=== PATIENT | male | born 1960 | race African-American/Black ===

== ENCOUNTER 2017-07-27 16:34 | Inpatient (IN) | payer MEDICAID ==
[~2017-07-27] VITALS: Ht 167.6 cm; Wt 86.0 kg
--- NOTE | 2017-07-27 19:00 | NUR ---
PT OFF OF UNIT TO RADIOLOGY.
[2017-07-27 20:15] LABS: BASOPHIL % 0.4 % (0-2); PLATELET COUNT 287 x10^3mcL (130-400); RED CELL DISTRIBUTION WIDTH 13.7 % (11.5-14.5)
[2017-07-27 20:22] LABS: CALCIUM 8.8 mg/dL (8.5-10.1); CARBON DIOXIDE 27.1 mmol/L (21-32); CHLORIDE SERUM 98 mmol/L (98-107); GFR1 > 60 mL/min; GLUCOSE SERUM 265 mg/dL (74-106); POTASSIUM SERUM 3.7 mmol/L (3.5-5.1); SODIUM SERUM 134 mmol/L (136-145)
[2017-07-27 20:27] LABS: ALKALINE PHOSPHATASE 96 U/L (46-116); ALT/SGPT 18 U/L (16-63); AST/SGOT 19 U/L (15-37); BILIRUBIN TOTAL 0.48 mg/dL (0.20-1.00); CHOLESTEROL 167 mg/dL (<200); HDL CHOLESTEROL 43 mg/dL (40-60)
[2017-07-27 20:30] LABS: ALBUMIN 3.2 g/dL (3.4-5.0); TOTAL PROTEIN, SERUM 8.5 g/dL (6.4-8.2)
--- NOTE | 2017-07-27 20:30 | NUR ---
CHRISTA RODRIGUEZ AT BEDSIDE FOR MED PASS.
[2017-07-27] MEDS ORDERED: SEROQUEL400 M1 PO (21:22)
[2017-07-27] MEDS ORDERED: ABILIFY20 M1 PO (21:23)
[2017-07-27] MEDS ORDERED: LOTENSIN40 MG PO (21:23)
[2017-07-27] MEDS ORDERED: NOR10 PO (21:23)
[2017-07-27] MEDS ORDERED: HYDROCHLOROTHIA25 MG PO (21:24)
[2017-07-27] MEDS ORDERED: JANUVIA100 M1 PO (21:24)
[2017-07-27] MEDS ORDERED: CATAPRES0.1 MG PO ×2 (21:25→21:26)
[2017-07-27] MEDS ORDERED: GLUCOTROL10 MG PO (21:25)
[2017-07-27] MEDS ORDERED: METFORMIN HCL1000 MG PO (21:26)
--- NOTE | 2017-07-27 21:38 | NUR ---
REPORT GIVEN TO ZULEYKA RODRIGUEZ.
--- NOTE | 2017-07-27 21:46 | NUR ---
RECEIVED FROM ED.PUT IN ROOM 258 B AND MADE COMFORTABLE.TELE 5 ASSIGNED,CUAUHTEMOC Franks IN THE ROOM,WILL ADMIT PATIENT.
--- NOTE | 2017-07-27 21:47 | NUR ---
REC'D PT FROM ER VIA [facility]. PT IS AAOX4. TELE #5 ST QD=047. RESP EVEN AND UNLABORED. EXP WHEEZE HEARD DAVE. PT C/O MILD SOB. O2 SAT = 96%. PLACED PT ON 2L O2 VIA NC FOR COMFORT. ABD SOFT. BS ACTIVE X4. PT C/O 10/10 RIGHT UPPER ABD PAIN RADIATING TO RIGHT FLANK. IV NOTED TO RAC. INTACT AND PATENT. ORIENTED PT TO CALL LIGHT. BED IN LOWEST POSITION. WILL ENDORSE TO PRIMARY RN.
[2017-07-27 21:59] VITALS: BP 155/95
[2017-07-27 22:07] VITALS: Ht 167.6 cm; Wt 86.0 kg
[2017-07-27 22:14] LABS: CHOLESTEROL/HDL RATIO 3.5; MAGNESIUM 1.9 mg/dL (1.8-2.4); PHOSPHOROUS 2.4 mg/dL (2.5-4.9)
[2017-07-27 22:23] LABS: FREE T4 0.97 ng/dL (0.76-1.46); FREE THYROXINE INDEX 2.4 ug/dL (1.4-4.5)
--- NOTE | 2017-07-27 23:08 | NUR ---
PATIENT WAS ASKING FOR PAIN SHOT EARLIER,NONE AT THAT TIME,GIVEN NORCO.DR BETANCOURT MADE AWARE.
--- NOTE | 2017-07-27 23:09 | NUR ---
DR BETANCOURT ORDERED TORADOL IVP.WILL GIVE LATER,JUST GIVEN NORCO.IVF NS AT 20 CC/ HOUR NOW.
[2017-07-28] VITALS (7 sets, daily range): BP systolic 120–156; BP diastolic 70–95
[2017-07-28 00:32] LABS: UA SPECIFIC GRAVITY >=1.030 (1.005-1.035); microscopic required? YES; urine erythrocyte NEGATIVE (NEGATIVE)
[2017-07-28 00:38] LABS: AMPHETAMINE QUAL UR NONE DETECTED (NEG <=1000)
--- NOTE | 2017-07-28 05:56 | NUR ---
BLOOD SUGAR 260 THIS AM,DECLINE RISS OF 9 UNITS.SAYS HE DON'T WANT INSULIN,JUST GIVEN HIS GLUCOTROL.WILL HAVE GLUCOPHAGE NEXT SHIFT.DR BETANCOURT MADE AWARE.
[2017-07-28 06:01] LABS: BASOPHIL % 0.1 % (0-2); PLATELET COUNT 250 x10^3mcL (130-400); RED CELL DISTRIBUTION WIDTH 14.1 % (11.5-14.5)
[2017-07-28 06:33] LABS: CALCIUM 8.4 mg/dL (8.5-10.1); CARBON DIOXIDE 29.3 mmol/L (21-32); CHLORIDE SERUM 100 mmol/L (98-107); CREATININE SERUM 1.1 mg/dL (0.7-1.3); GFR1 > 60 mL/min; GLUCOSE SERUM 244 mg/dL (74-106); PHOSPHOROUS 3.3 mg/dL (2.5-4.9); POTASSIUM SERUM 3.8 mmol/L (3.5-5.1); SODIUM SERUM 134 mmol/L (136-145)
--- NOTE | 2017-07-28 07:20 | NUR ---
CANCELLATION REQUESTED FOR ECHOCARDIOGRAM
--- NOTE | 2017-07-28 07:30 | NUR ---
PT RECEIVED AAOX4, CONVERSING WELL IN FULL SENTENCES. RESP EVEN AND UNLABORED ON O2 @ 3L/MIN VIA NC. SAT 95%. C/O RIGHT SIDED CHEST/BACK PAIN ON DEEP INSPIRATION, RADIATES TO RUQ. NOTED WITH INSPIRATORY WHEEZES ON FERNANDO AND DIM BILATERAL BASES. DENIES ANY SOB AT THIS TIME. TELE #5, ST, HR 109. IV ON RAC INTACT, 20G, INFUSING NS AT 20ML/HR. ABD ROUND/SOFT WITH ACTIVE BS IN ALL QUADS. VOIDING WELL WITH BRP. AMBULATES INDEPENDENTLY. KEPT NPO ORDERED PENDING US GALLBLADDER. PT AWARE AND AGREEABLE. DENIES ANY OTHER NEEDS AT THIS TIME. CALL LIGHT WITHIN REACH.
--- NOTE | 2017-07-28 12:30 | NUR ---
PT REFUSED INSULIN COVERAGE. AWARE OF RISKS VS BENEFITS. PT WILLING TO TAKE PO METFORMIN. GIVEN ORDERED. SEE EMAR. FAMILY VISITING AT BEDSIDE. WILL CONTINUE TO MONITOR.
--- NOTE | 2017-07-28 13:41 | NUR ---
PT RESTING COMFORTABLY BED. MEDICATED FOR RIGHT BACK PAIN ON DEEP INSPIRATION REQUESTED. VISITORS AT BEDSIDE. PT ENCOURAGED TO AMBULATE, BUT WANTS TO TAKE A NAP AT THIS TIME. WILL CONTINUE TO MONITOR.
--- NOTE | 2017-07-28 15:55 | NUR ---
PT SLEEPING COMFORTABLY. RESP EVEN AND UNLABORED. CALL LIGHT WITHIN EASY REACH.
--- NOTE | 2017-07-28 16:05 | NUR ---
PT TAKEN DOWN TO CT VIA WC. AAOX4, NO S/S OF ACUTE DISTRESS
--- NOTE | 2017-07-28 16:15 | NUR ---
PT BACK FROM CT. RECONNECTED TO IVF ORDERED. SETTLED BACK INTO BED WITH CALL LIGHT WITHIN REACH.
--- NOTE | 2017-07-28 16:52 | NUR ---
O2 SAT 86% ON 4L/MIN VIA NC. PT AWAKE, ALERT AND TALKING. C/O PAIN ON DEEP INSPIRATION. RT PAGED FOR BREATHING TREATMENT. DR CHANEY PAGED TO MAKE AWARE, AWAITING CALL BACK.
--- NOTE | 2017-07-28 17:03 | NUR ---
RT AT BEDSIDE, PLACED ON 6L OXYMIZER. BREATHING TREATMENT IN PROGRESS. IVF DECREASED TO 10M/HR. WILL CONTINUE TO MONITOR.
--- NOTE | 2017-07-28 18:12 | NUR ---
PT RESTING COMFORTABLY ON O2 @ 6L/MIN VIA OXYMIZER. DENIES ANY OTHER NEEDS AT THIS TIME. WILL CONTINUE TO MONITOR.
--- NOTE | 2017-07-28 19:21 | NUR ---
REPORT GIVEN TO JENNIFER GARDINER
--- NOTE | 2017-07-28 19:36 | NUR ---
SHIFT REASSESSMENT DONE.PATIENT AMBULATING IN HALLWAY,REMINDED TO GO BACK TO BED,PUT OXYGEN OXIMIZER ON,HAD RESP DISTRESS EARLIER PREVIOUS SHIFT.INSP WHEEZING,PLEURAL EFFUSION NOTED,NS AT 10 CC/ HOUR.TELE [address]SKIN INTACT.ON HEPARIN SQ ORDERED.PAIN PILL AND PAIN SHOT GIVEN PREVIOUS SHIFT.CALL LIGHT IN REACH.
--- NOTE | 2017-07-28 20:51 | NUR ---
PM MEDS GIVEN,SWALLOWS WELL.
--- NOTE | 2017-07-28 23:45 | NUR ---
PATIENT CHECKED AT INTERVALS,SLEEPING COMFORTABLY,OXIMIZER ON.
--- NOTE | 2017-07-29 02:20 | NUR ---
PATIENT UP AND BRUSHING HIS TEETH,HEART RATE WAS ELEVATED 130,NO SYMPTOMS.
--- NOTE | 2017-07-29 02:31 | NUR ---
WANTING NORCO AFTER BRUSHING HIS TEETH.PATIENT SAYS HE IS OK.IVF INFUSING.
--- NOTE | 2017-07-29 05:58 | NUR ---
PATIENT BLOOD SUGAR 215,GIVEN 6 UNITS RI,AM MEDS SCHEDULED.IV SITE PATENT.O2 OXIMIZER AT 6 LITERS,BEEN USING IT ALL NIGHT.NS AT 10 CC/ HOUR.WILL ENDORSE TO NEXT SHIFT.
[2017-07-29 06:16] VITALS: BP 101/66
[2017-07-29 06:16] LABS: CALCIUM 8.6 mg/dL (8.5-10.1); CHLORIDE SERUM 99 mmol/L (98-107); CREATININE SERUM 1.2 mg/dL (0.7-1.3); GFR1 > 60 mL/min; GLUCOSE SERUM 213 mg/dL (74-106); MAGNESIUM 1.9 mg/dL (1.8-2.4); PHOSPHOROUS 3.9 mg/dL (2.5-4.9); POTASSIUM SERUM 4.2 mmol/L (3.5-5.1); SODIUM SERUM 135 mmol/L (136-145)
[2017-07-29 06:20] LABS: BASOPHIL % 0.3 % (0-2); PLATELET COUNT 278 x10^3mcL (130-400); RED CELL DISTRIBUTION WIDTH 14.1 % (11.5-14.5)
--- NOTE | 2017-07-29 07:55 | NUR ---
AWAKE ,ALERT AND ORIENTED. DENIES ANY PAIN TA THIS TIME,CALL LIGHT W/ I REACH CONT. 02 PULSES OXIMIXER AT 6 L GYPSY. WELL.NO ACUTE RESP. DISTRESS NOTED W/ 02 SAT 93% .HOB ELEVATED CONT. IV FLUIDS AND IV ANTIBIOTIC ORDERED.WILL CONT. PLAN OF CARE PT. C/O OF CNSTIPATION FOR 3 DAYS NOW NOTIFIED AND MADE AWARE.
[2017-07-29 08:50] VITALS: BP 156/92
--- NOTE | 2017-07-29 09:10 | NUR ---
DR. ARIZMENDI HERE W/ OTHER MEDICAL STAFF MADE ROUNDS AND UPDATED PT. PLAN ON CARE
--- NOTE | 2017-07-29 10:00 | NUR ---
PT. REFUSED TO GO CT. SCAN MADE AWARE.
[2017-07-29 13:08] VITALS: BP 113/67
--- NOTE | 2017-07-29 15:00 | NUR ---
PT. C/O OF CONSTIPATION MOM GIVE ORDERED. AWAITING FOR RESULTS.
--- NOTE | 2017-07-29 16:00 | NUR ---
PT. AMBULATED IN THE BATHROOM NOTED SOB ON EXERTION DURING ACTIVITY.INSTRUCTED PT. TO CALL FOR ASSIST. NEEDED FOR HELP.CALL LIGHT W/ IN REACH.
[2017-07-29 17:18] VITALS: BP 153/78
--- NOTE | 2017-07-29 18:33 | NUR ---
PT. STILL NO BM AFTER MOM GIVEN ,PT. STATED HE WILL LET NURSE KNO WHEN HE GOES TO BATHROOM.CALL LIGHT W/ IN REACH.
--- NOTE | 2017-07-29 20:00 | NUR ---
RECEIVED PT IN BED, ALERT AND ORIENTED. DENIES HEADACHE/DIZZINESS. 02 AT 6L/MIN VIA OXYMIZER, SOB NOTED ON EXERTION, ON RT PROTOCOL, NO DISTRESS NOTED. AFEBRILE AND VITAL SIGNS STABLE. ST/SR ON THE MONITOR, DENIES CHEST PAIN OR ANY DISCOMFORT. IVF, NS AT 10ML/HR, INTACT AND INFUSING VIA RAC,SITE CLEAR.AMBULATES TO THE BATHROOM, HAD X1 LG SOFT BM PER PT. VOIDING FREELY. ASSISTED WITH HS CARE. CALL LIGHT WITHIN REACH. WILL CONTINUE TO MONITOR.
[2017-07-29 21:54] VITALS: BP 116/77
--- NOTE | 2017-07-29 23:45 | NUR ---
NO COMPLAINTS NOTED AT THIS TIME. [address] VIA OXYMIZER, GYPSY. WELL. NO DISTRESS NOTED. WILL CONTINUE TO MONITOR.
--- NOTE | 2017-07-30 00:45 | NUR ---
NEW IV SITE RESTARTED ON RFA, WITH #22G ANGIO. IVF INTACT AND INFUSING WELL. WILL CONTINUE TO MONITOR.
--- NOTE | 2017-07-30 04:46 | NUR ---
FOR PROCEDURE THIS AM, NPO MAINTAINED. IVF INTACT AND INFUSING WELL, SITE CLEAR. WILL CONTINUE TO MONITOR.
[2017-07-30 05:23] VITALS: BP 142/62
[2017-07-30 06:26] LABS: CALCIUM 8.8 mg/dL (8.5-10.1); CARBON DIOXIDE 31.3 mmol/L (21-32); CHLORIDE SERUM 96 mmol/L (98-107); CREATININE SERUM 1.1 mg/dL (0.7-1.3); GFR1 > 60 mL/min; GLUCOSE SERUM 204 mg/dL (74-106); POTASSIUM SERUM 4.2 mmol/L (3.5-5.1); SODIUM SERUM 135 mmol/L (136-145)
--- NOTE | 2017-07-30 06:31 | NUR ---
AFEBRILE AND VITAL SIGNS STABLE. RESP. EVEN AND UNLABORED. [address] VIA OXYMIZER, GYPSY. WELL. NO DISTRESS NOTED. DUE MEDS GIVEN ORDERED, GYPSY. WELL. DENIES PAIN OR ANY DISCOMFORT. IVF INTACT AND INFUSING WELL, SITE CLEAR. KEPT COMFORTABLE. NPO SINCE [place] MAINTAINED. FOR PROCEDURE THIS AM. WILL ENDORSE TO INCOMING NURSE.
[2017-07-30 06:41] LABS: BASOPHIL % 1.3 % (0-2); PLATELET COUNT 330 x10^3mcL (130-400); RED CELL DISTRIBUTION WIDTH 12.9 % (11.5-14.5)
--- NOTE | 2017-07-30 08:00 | NUR ---
AWAKE AND ALERT ,DENIES ANY PAIN AT THIS TIME. BUT STILL NOTED SOB ON EXERTION DURING ACTIVITY DURING AMBULATION IN THE BATHROOM.ENCOURAGE TO USE AND CONT. 02 6 L OXYMIZER.AND USE URINAL INSTEAD GOING IN THE BATHROOM.CALL LIGHT W/ IN REACHNO ACUTE RESP. DISTRESS NOTED. CONT. IV ANTIBIOTIC ORDERED.WILL CONT. PLAN OF CARE.
[2017-07-30 09:15] VITALS: BP 157/88
--- NOTE | 2017-07-30 09:30 | NUR ---
DR. ARIZMENDI HERE MADE ROUNDS W/ OTHER MEDICAL STAFF AND UPDATED PT. PLAN OF CARE.
--- NOTE | 2017-07-30 10:30 | NUR ---
SPOKE WITH PATIENT'S NURSE JASPER TO NOTIFY HER THAT THE THORACENTESIS TIME IS APPROX 1:00-1:30 AND TO KEEP PATIENT NPO UNTIL AFTERWARDS.
--- NOTE | 2017-07-30 10:30 | NUR ---
PT. INSTRUCTED TO KEEP NPO UNTIL AFTER THE PROCEDURE HOLD FOR LUNCH AND PT. ALBERTINA BRIGGS.
--- NOTE | 2017-07-30 11:00 | NUR ---
FOUND PT. AMBULATED IN [address] W/ OUT 02,AND PT. NOTED SOB ON EXERTION. INSTRUCTED PT. TO GO BACK TO HIS ROOM AND PUT ON 02 6L OXYMIZER AND MADE COMFORTABLE O2 SAT DESATURATED TO 89%.CALL R.T FOR HHN TX.PT. RESTING IN BED. AFTER HHN TX NOTED 02 SAT GOES UP TO 93%.NO ACUTE RESP. DISTRESS . WILL CONT. TO MONITOR PT.
[2017-07-30 11:43] VITALS: BP 129/73
--- NOTE | 2017-07-30 13:30 | NUR ---
THORACENTESIS NOT DONE ,NOT ENOUGH FLUIDS TO ASPIRATE PT. MADE AWARE AND MADE AWARE.
[2017-07-30 17:45] VITALS: BP 132/73
--- NOTE | 2017-07-30 18:00 | NUR ---
DENIES PAIN THE WHOLE DAY. NO ACUTE DISTRESS NOTED. CALL LIGHT W/ IN REACH,
--- NOTE | 2017-07-30 20:00 | NUR ---
RECEIVED PT IN BED, ALERT AND ORIENTED. DENIES HEADACHE/DIZZINESS. RESP. EVEN AND SLIGHTLY LABORED, [address] VIA OXYMIZER, SAT. 93%., SOB NOTED WITH EXERTION. AFEBRILE AND VITAL SIGNS STABLE. IVF, NS AT 10ML/HR, INTACT AND INFUSING VIA RFA, SITE CLEAR. ST ON THE MONITOR, DENIES CHEST PAIN OR ANY DISCOMFORT AT THIS TIME. VOIDING FREELY. CALL LIGHT WITHIN REACH. WILL CONTINUE TO MONITOR.
[2017-07-30 22:08] VITALS: BP 141/78
--- NOTE | 2017-07-31 03:14 | NUR ---
CHECKED AT INTERVALS, NO COMPLAINTS NOTED AT THIS TIME. EYES CLOSED. APPEARS ASLEEP, [address], NO DISTRESS NOTED. WILL CONTINUE TO MONITOR.
[2017-07-31 05:32] VITALS: BP 152/81
[2017-07-31 06:17] LABS: CALCIUM 8.8 mg/dL (8.5-10.1); CARBON DIOXIDE 29.2 mmol/L (21-32); CHLORIDE SERUM 97 mmol/L (98-107); CREATININE SERUM 1.3 mg/dL (0.7-1.3); GFR1 > 60 mL/min; GLUCOSE SERUM 220 mg/dL (74-106); PLATELET COUNT 337 x10^3mcL (130-400); POTASSIUM SERUM 3.9 mmol/L (3.5-5.1); SODIUM SERUM 133 mmol/L (136-145)
--- NOTE | 2017-07-31 06:38 | NUR ---
AFEBRILE AND VITAL SIGNS STABLE. DENIES CHEST PAIN OR ANY DISCOMFORT. REMAINS ON 02 AT 6L/MIN VIA OXYMIZER.GYPYS . WELL. ENCOURAGED TO USE THE INCENTIVE NORM. GYPSY. WELL. DUE MEDS GIVEN ORDERED, GYPSY. WELL. IVF INTACT AND INFUSING WELL, SITE CLEAR. KEPT COMFORTABLE. WILL ENDORSE TO INCOMING NURSE.
[2017-07-31 07:48] LABS: RED CELL DISTRIBUTION WIDTH 14.6 % (11.5-14.5)
--- NOTE | 2017-07-31 08:00 | NUR ---
RECEIVED CRITICAL REPORT FOR WBC 23.0. DR. ALFARO MADE AWARE AT THIS TIME, NO NEW ORDERS.
--- NOTE | 2017-07-31 08:05 | NUR ---
RECEIVED PT IN BED A/A/OX4 DENIES FRENCH. RESP EVEN AND SLIGHTLY LABORED WITH CLEAR BS ON LT AND CRACKLES/WHEEZING ON RT. ON O2 AT 9L/MIN VIA OXYMIZER. ON RT PROTOCOL, ENCOURAGE USE OF IS. ST ON TELE HR 120. PT DENIES ANY CP/PRESSURE. REPORTS SOB WITH ACTIVITY. NO EDEMA NOTED WITH IVF NS AT TKO. ABD SOFT, NONTENDER WITH ACTIVE BS X4. DENIES ANY N/V AT THIS TIME. VOIDING FREELY. AMBULATORY. ABLE TO TRAN[place] [facility] [place] LIGHT IN REACH NEEDS ATTENDED TO.
[2017-07-31 09:45] VITALS: BP 150/84
[2017-07-31 09:59] LABS: BAND NEUTROPHIL 0 % (0-10); BASOPHIL 0 % (0-2); MONOCYTE 13 % (0-7); SEGMENTED NEUTROPHILS 82 % (37-75)
[2017-07-31 10:00] LABS: rbc morphology (normal/abnorm) ABNORMAL (NORMAL)
[2017-07-31 10:01] LABS: PLATELET MORPHOLOGY PLATELETS NORMAL
--- NOTE | 2017-07-31 10:40 | NUR ---
PT C/O BACK PAIN MEDICATED WITH PERCOCET PO ORDERED. WILL CONT TO MONITOR.
--- NOTE | 2017-07-31 12:30 | NUR ---
PT RESTING COMFORTABLY AT THIS TIME. DENIES ANY DISCOMFORT. CALL LIGHT IN REACH NEEDS ATTENDED TO.
[2017-07-31 12:51] VITALS: BP 125/77
[2017-07-31 16:28] VITALS: BP 143/79
[2017-07-31 17:17] VITALS: BP 143/79
--- NOTE | 2017-07-31 18:09 | NUR ---
PT SITTING IN BED EATING DINNER. DENIES ANY DISCOMFORT. CONT WITH IVF TKO AND IVPB ATB. PT HAD X1 EPISODE OF WORSENIGN SOB WHEN ATTEMPTED TO AMBULATE THIS AFTERNOON. RT CALLED FOR TX O2 SAT DROPPED TO 88% AND O2 INCREASED TO 10L/MIN VIA OXYMIZER. PT REPORTED IMPROVEMENT WITH SOB AFTER BREATHIGN TX AND HAS BEEN RESTING COMFORTABLY. DR. ALFARO WAS MADE AWARE. CALL LIGHT IN REACH NEEDS ATTENDED TO.
--- NOTE | 2017-07-31 19:56 | NUR ---
PT A/O X4, VERBAL RESPONSIVE. LUNG SOUNDS BILATERAL CRACKLES AT LOWER BASE, PATIENT ON OXIMIZER AT 8L WITH 02 SAT OF 93%. DENIES SOB. RT AT BEDSIDE PROVIDING BREATHING TREATMENT. PT ON TELE 5 S[place]US T[place]Y. DENY ANY CHEST PAIN. BOWEL SOUNDS IN ALL 4 QUADRANTS. ROUNDED AND SOFT, NO TENDERNESS. BILATERAL PEDAL PULSES PRESENT. NO EDEMA PRESENT. IV ON RFA, INTACT. DRESSING INTACT. NO LEAKING AND INFILTRATION. CALL LIGHT IN REACH. ALL NEEDS MET. WILL CONTINUE TO MONITOR
[2017-07-31 21:17] VITALS: BP 128/82
--- NOTE | 2017-08-01 05:20 | NUR ---
PT A/O X4. PT ON OXYMIZER AT 8L, PO2 AT 93%. NO RESPIRATORY DISTRESS AT THIS TIME. NO C/O PAIN. IV TO RAC, NO LEAKING/INFILTRATION. ALL NEEDS MET, ALL ADLS ASSIST, CALL LIGHT WITHIN REACH. WILL CONTINUE TO MONITOR.
[2017-08-01 05:37] VITALS: BP 133/76
[2017-08-01 07:25] LABS: PLATELET COUNT 343 x10^3mcL (130-400); RED CELL DISTRIBUTION WIDTH 14.5 % (11.5-14.5)
[2017-08-01 07:34] LABS: CALCIUM 8.6 mg/dL (8.5-10.1); CARBON DIOXIDE 30.5 mmol/L (21-32); CHLORIDE SERUM 96 mmol/L (98-107); CREATININE SERUM 1.3 mg/dL (0.7-1.3); GFR1 > 60 mL/min; GLUCOSE SERUM 115 mg/dL (74-106); PHOSPHOROUS 4.4 mg/dL (2.5-4.9); POTASSIUM SERUM 3.5 mmol/L (3.5-5.1); SODIUM SERUM 136 mmol/L (136-145)
[2017-08-01 09:09] VITALS: BP 152/80
[2017-08-01 09:25] LABS: BAND NEUTROPHIL 0 % (0-10); BASOPHIL 0 % (0-2); MONOCYTE 12 % (0-7); SEGMENTED NEUTROPHILS 81 % (37-75)
[2017-08-01 09:26] LABS: PLATELET MORPHOLOGY PLATELETS NORMAL; rbc morphology (normal/abnorm) ABNORMAL (NORMAL)
--- NOTE | 2017-08-01 09:41 | NUR ---
AAO TIMES 4. TELE # 5 [address] 103. LUNGS CTA BUL AND LLL, DIMINISHED RLL. O2 OXIMIZER 8L, O2 SAT 95%. BS'S ACTIVE TIMES 4. RIZZO STRONG, HOWEVER HE GETS SOB WITH AMBULATION, SO A BSC WAS PLACED NEXT TO BED. PERIPHERAL PULSES PALPABLE. NO EDEMA. ON HEPARIN SQ. ATE 100% BRKF. DR LAZO WAS MADE AWARE AT 0937 OF WBC'S OF 23.7 THIS AM, CALLED IN CRITICAL. HE TALKED WITH PT, THE PLAN TODAY IS TO SEND HIM OUT TO AN ACUTE [facility]ARE HOSPITAL, HIGHER LEVEL OF CARE SOON BED IS AVAILABLE.
--- NOTE | 2017-08-01 09:48 | NUR ---
GOT A CALL FROM MARTA RODRIGUEZHOOP DRIVING MACHINE OPERATOR HELPER BED NURSE FROM [facility] AND WANTS TO KNOW IF THE PATIENT IS COMPLIANT WITH HIS PSYCHE MEDS.AND IF HE'S A SITTER AND TOLD HIM HE'S COMPLIANT WITH HIS MEDS. AND HE'S NOT A SITTER. HE STATED THAT HE'LL CALL BACK IF THERE'S A BED AVAILABLE. CALLED OUR ETCHER APPRENTICE MARLEE RODRIGUEZ AND MADE AWARE OF THE ABOVE.
--- NOTE | 2017-08-01 12:00 | NUR ---
MEDICAL ROUNDS WERE DONE WITH DR CASTILLO, DR VANG AND DR HOANG. THE PLAN TODAY IS TO SEND HIM TO A HOSPITAL BED AT A HIGHER LEVEL OF CARE WHEN A BED IS AVAILABLE, CASE MANAGMENT IS PERSUING THIS.
[2017-08-01 12:55] VITALS: BP 114/76
[2017-08-01 17:12] VITALS: BP 134/75
--- NOTE | 2017-08-01 18:20 | NUR ---
AAO TIMES 4. TELE # 5 ST 106. C/O SOB WITH ACTIVITY. ON OXIMIZER 8L. PLEASANT AND COOPERATIVE. IV SITE TO [facility] PATENT, CDI. NO C/O PAIN.
--- NOTE | 2017-08-01 18:20 | NUR ---
GOT A TELEPHONE CALL FROM [facility] JAYASHREE POLYSOMNOGRAPHY TECHNICIANBARIATRIC SURGEON THAT HAVE BED FOR THE PATIENT AND HE'S GOING TO RM.350A. TO CALL REPORT [phone]. TO CALL JAYASHREE TEL.[phone] WHEN THE PATIENT LEAVES. CALL TO AND MADE AWARE PT.HAS A BED AT [facility].
[2017-08-01] MEDS ORDERED: IPRATROPIUM BROM3 M2 HHN (18:31)
--- NOTE | 2017-08-01 18:51 | NUR ---
[id number] FROM JAYASHREE [facility] AND CORRECTED THE TELEPHONE NO. TO GIVE REPORT [phone].
[2017-08-01 18:57] VITALS: BP 134/75
--- NOTE | 2017-08-01 19:37 | NUR ---
REC'D PT FROM DAY NURSE. PT TO TRANSFER TO [facility] FOR HIGHER LEVEL OF CARE. DISCHARGE PAPERWORK AND INSTRUCTIONS GIVEN AND SIGNED. QUESTIONS ANSWERED TO PT'S SATISFACTION. [facility] TO PAINTER MIRROR PT AT 2030. PT AAOX4, SPEECH CLEAR, FOLLOWS COMMANDS. NO SIGNS OF DISTRESS NOTED. BREATHING EVEN/UNLABORED ON RA. DENIES RESP DISTRESS OR SOB. SITTING UP IN HIGH FOWLERS POSITION. SPO2 90-92% ON 10L O2 VIA OXYMIZER. LUNG SOUNDS DIM TO BASES. DRY COUGH. IS ENCOURAGED. TELE REMOVED. NO EDEMA NOTED. DENIES ABD PAIN, TENDERNESS, OR N/V. BOWEL SOUNDS ACTIVE. VOIDING. SKIN INTACT. REPORTS PAIN TO R BACK 10/10 EXACERBATED WITH COUGH. NORCO GIVEN PER ORDER. IV TO RAC FLUSHED AND PATENT, SITE WNL. CALL LIGHT WITHIN REACH, BED AT LOWEST POSITION. WILL CONTINUE TO MONITOR.
--- NOTE | 2017-08-01 20:00 | NUR ---
REPORT GIVEN TO NURSE SK[facility] ([phone]). PT REPORTS PAIN RELIEF WITH NORCO. NO COMPLAINTS AT THIS TIME. BS 264. PT REFUSING INSULIN. EDUCATED PT REGARDING IMPORTANCE OF INSULIN TO KEEP BLOOD SUGAR AT AN APPROPRIATE LEVEL. PT VERBALIZED UNDERSTANDING BUT STILL REFUSED. 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
[2017-08-01 20:03] VITALS: BP 154/76
--- NOTE | 2017-08-01 20:30 | NUR ---
[facility] TEAM AT BEDSIDE. REPORT GIVEN. PT HAS JUST FINISHED HAVING A BM. DENIES RESP DISTRESS OR SOB. CALLED RT TO RECEIVE BREATHING TREATMENT PER REQUEST BUT UNABLE TO GET A HOLD OF THEM. PT STATED HE FEELS FINE AND STATES IT'S OK IF HE DOES NOT GET A BREATHING TREATMENT PRIOR TO LEAVING. [facility] TEAM REPORTS THEY CAN GIVE HIM A BREATHING TREATMENT EN ROUTE TO [facility] IF NECESSARY. ALL BELONGINGS WITH PT. VSS. NO COMPLAINTS AT THIS TIME. WHEELED OUT VIA [employer].
== END 2017-08-01 20:45 | disposition short-term general hospital (02) | DRG 720 ==
LOC: ED 16:34 → DU 20:45
PROVIDERS: Emergency Medicine; Family Medicine; ADMIT Family Medicine Sports Medicine
PROC: 0W993ZZ Drainage of Right Pleural Cavity, Percutaneous Approach (ICD-10-PCS; principal; 2017-07-30)
DX: A41.9 Sepsis, unspecified organism (principal); N17.0 Acute kidney failure with tubular necrosis; J69.0 Pneumonitis due to inhalation of food and vomit; J86.9 Pyothorax without fistula; E44.0 Moderate protein-calorie malnutrition; D68.69 Other thrombophilia; E11.59 Type 2 diabetes mellitus with other circulatory complications; E11.65 Type 2 diabetes mellitus with hyperglycemia; R65.20 Severe sepsis without septic shock; E87.1 Hypo-osmolality and hyponatremia; E83.39 Other disorders of phosphorus metabolism; F20.9 Schizophrenia, unspecified; K76.0 Fatty (change of) liver, not elsewhere classified; I16.0 Hypertensive urgency; R80.9 Proteinuria, unspecified; E66.9 Obesity, unspecified; Z68.30 Body mass index [BMI] 30.0-30.9, adult; Z79.84 Long term (current) use of oral hypoglycemic drugs; Z91.19 Patient's noncompliance with other medical treatment and regimen
CPT/HCPCS: 32555; 82962; 83880; 84439; 94150; J1644; J1815; J1885; J1956; J2543; J3010; J3490; J7030; J7620; Q0092; Q0162